=== PATIENT | male | born 1970 | race Caucasian/White ===

== ENCOUNTER 2024-12-02 13:45 | Outpatient (RCR) | payer BC, SELFPAY | END 2025-04-01 23:59 | disposition home or self-care (01) | PROVIDERS: Visit Provider Chiropractor | DX: M54.2 Cervicalgia (principal); M25.512 Pain in left shoulder; M54.12 Radiculopathy, cervical region; Z51.89 Encounter for other specified aftercare | CPT/HCPCS: 97110; 97140; 97162 ==